=== PATIENT | male | born 1955 | race Caucasian/White ===

== ENCOUNTER → 2017-09-25 | Outpatient (CLI) | payer OTHER ==
[~2017-09-25] MED LIST: LISI-729 PO; LPT/40 PO; OMEP20CA59 PO
[2017-09-25 16:23] LABS: ALBUMIN 3.9 gm/dl (3.4-5.0); ALT/SGPT 35 U/L (12-78); AST/SGOT 24 U/L (15-37); BLOOD UREA NITROGEN 25 mg/dl (7-18); CALCIUM 9.3 mg/dl (8.5-10.1); CARBON DIOXIDE 28 mmol/L (21-32); CREATININE 1.06 mg/dl (0.60-1.40); GLUCOSE 94 mg/dl (70-99); SODIUM 139 mmol/L (136-145)
[2017-09-25 16:36] LABS: ALKALINE PHOSPHATASE 85 U/L (45-117); CHOLESTEROL 174 mg/dl (0-200); LDL CHOLESTEROL CALCULATED 97 mg/dl; TOTAL PROTEIN 7.6 gm/dl (6.4-8.2)
== END | disposition home or self-care (01) ==
LOC: C.LABBC 09:24
PROVIDERS: ATTEND Nurse Practitioner Adult Health
DX: E78.5 Hyperlipidemia, unspecified (principal); E03.9 Hypothyroidism, unspecified; Z12.5 Encounter for screening for malignant neoplasm of prostate

== ENCOUNTER → 2017-09-25 | Outpatient (CLI) | payer OTHER ==
--- NOTE | 2017-09-25 10:49 | DIAGNOSTIC IMAGING REPORT ---
ULTRASOUND EXAM AAA SCREEN CLINICAL HISTORY: 61 years-old Male presenting with Z82.49 Family history of abdominal aortic aneurysm. TECHNIQUE: Real-time grayscale and color and spectral Doppler ultrasound imaging of the abdominal aorta and iliac arteries was performed. COMPARISON: None. FINDINGS: Proximal aorta: Grossly patent but poorly visualized secondary to bowel gas. Transverse dimension 2.2 x 2.2 cm. Mid aorta: Patent. Transverse dimension 2.0 x 1.8 cm. Distal aorta: Patent. Transverse dimension 1.8 x 1.7 cm. Right iliac artery: Patent. Transverse dimension 1.0 cm. Left iliac artery: Not visualized secondary to bowel gas. Other: 2.8 x 2.0 x 3.0 lobular anechoic lesion in the left hepatic lobe likely hepatic cyst. IMPRESSION: 1. Allowing for the somewhat limited examination, no evidence of abdominal aortic aneurysm. Electronically signed by: Oumar Quiroga M.D. 09/25/2017 10:47 AM Dictated Date/Time: 09/25/2017 10:45 AM
== END | disposition home or self-care (01) ==
LOC: C.ULTR 10:05
PROVIDERS: ATTEND Nurse Practitioner Adult Health
DX: Z82.49 Family history of ischemic heart disease and other diseases of the circulatory system (principal)